=== PATIENT | female | born 1990 | race American Indian/Alaskan Native ===

== ENCOUNTER 2016-09-27 17:02 | Emergency (ER) | payer OTHER ==
[2016-09-27 17:07] VITALS: BP 123/75; PULSE 90; TEMP 97.9; BMI 28.3
--- NOTE | 2016-09-27 18:29 | PDOC ---
History of Present Illness - General Chief Complaint: Eye Problem Stated Complaint: EYE PROBLEM Time Seen by Provider: 09/27/16 17:27 History Source: Patient Exam Limitations: No Limitations - History of Present Illness Initial Comments: 09/27/16 18:24 26 year old female presents with stye to left eye since Monday, now reports swelling of left upper eyelid with itching of eye. Denies tearing of the eye. Also denies foreign body sensation. 09/27/16 18:36 Timing/Duration: 1 hour Severity: mild Modifying Factors: improves with: other (warm compress) Associated Symptoms: reports: denies symptoms Aspirin Received prior to arrival: Yes: no aspirin today Asa Contraindications(Core Measure): No: Allergy Beta Loretta Given by EMS(Core Measure): No Beta Loretta Taken at Home(Core Measure): No Beta Loretta Not Indicated at this Time(Core Measure): No Past History - Travel Traveled outside of the country in the last 30 days: No Close contact w/someone who was outside of country & ill: No - Past Medical History Allergies/Adverse Reactions: Allergies Allergy/AdvReac Type Severity Reaction Status Date / Time No Known Allergies Allergy Verified 09/27/16 17:07 Home Medications: Ambulatory Orders Naphazoline HCl/Pheniramine [Visine-A Eye Allergy Drops] 15 ml OP BID #1 drops 09/27/16 - Psycho/Social/Smoking Cessation Hx Suicidal Ideation: No Smoking History: Never smoked Information on smoking cessation initiated: No Review of Systems - Review of Systems Able to Perform ROS?: Yes Is the patient limited [place] proficient: No Constitutional: No: Chills, Fever, Loss of Appetite, Malaise, Night Sweats HEENTM: Yes: Eye Pain, Other (left eye swelling). No: Ear Pain, Nose Congestion , Throat Pain, Throat Swelling Respiratory: No: Cough, Orthopnea, Shortness of Breath, SOB with Exertion, SOB at Rest, Stridor, Wheezing, Productive cough Cardiac (ROS): No: Chest Pain ABD/GI: No: Constipated : No: Dysuria, Discharge, Frequency, Incontinence, Urgency Musculoskeletal: No: Back Pain, Gout, Joint Pain, Joint Swelling Integumentary: No: Change in Color, Erythema, Lesions Neurological: No: Headache, Numbness, Paresthesia, Seizure, Tingling, Tremors, Weakness *Physical Exam - Vital Signs Last Vital Signs Temp Pulse Resp BP Pulse Ox 97.9 F 90 18 123/75 100 09/27/16 17:03 09/27/16 17:03 09/27/16 17:03 09/27/16 17:03 09/27/16 17:03 - Physical Exam General Appearance: Yes: Nourished, Appropriately Dressed. No: Apparent Distress HEENT: positive: EOMI, REJI, TMs Normal, Pharynx Normal, Other (left bottom lid with stye and upper lid swelling noted, no ejection of left eye). negative: Normal ENT Inspection, Normal Voice, Symmetrical Neck: positive: Supple. negative: Lymphadenopathy (R), Lymphadenopathy (L) Respiratory/Chest: positive: Lungs Clear, Normal Breath Sounds Cardiovascular: positive: Regular Rhythm, Regular Rate, S1, S2 Neurologic: positive: adoption specialist II-XII NML intact, Fully Oriented, Alert, Normal Mood/ Affect. negative: Normal Response, Motor Strength 5/5 Medical Decision Making - Medical Decision Making 09/27/16 18:30 26 year old female with stye to left eye and now with upper eyelid swelling Rx: naphcon A 09/27/16 18:36 *DC/Admit/Observation/Transfer Diagnosis at time of Disposition: Stye Qualifiers: Laterality: left Eyelid: lower Qualified Code(s): H00.015 - Hordeolum externum left lower eyelid - Discharge Dispostion Disposition: HOME Condition at time of disposition: Good Admit: No - Prescriptions Prescriptions: Naphazoline HCl/Pheniramine [Visine-A Eye Allergy Drops] 15 ml OP BID #1 drops - Patient Instructions Printed Discharge Instructions: DI for Hordeolum Additional Instructions: Continue with warm compress to lower lid and use eye drops for itching eyes. Return for blurred vision or worsening of swelling. - Post Discharge Activity Work/School Note: Back to Work
== END 2016-09-27 19:04 | disposition home or self-care (01) ==
LOC: JERFT 17:02
DX: H00.015 Hordeolum externum left lower eyelid (principal)
CPT/HCPCS: 99281-25